=== PATIENT | male | born 1985 | race Caucasian/White ===

== ENCOUNTER → 2020-01-26 | Outpatient (CLI) | payer OTHER | END | disposition home or self-care (01) | LOC: LABWHC1 07:48 | PROVIDERS: ATTEND Internal Medicine | DX: Z20.828 Contact with and (suspected) exposure to other viral communicable diseases (principal) | CPT/HCPCS: 87635 ==

== ENCOUNTER → 2020-07-12 | Outpatient (CLI) | payer OTHER | END | disposition home or self-care (01) | LOC: LABWHC1 13:30 | PROVIDERS: ATTEND Internal Medicine | DX: Z20.828 Contact with and (suspected) exposure to other viral communicable diseases (principal) | CPT/HCPCS: U0003; C9803 ==

== ENCOUNTER → 2020-12-12 | Outpatient (CLI) | payer OTHER ==
--- NOTE | 2020-12-12 20:59 | XR ---
EXAMINATION TYPE: XR abdomen 2V DATE OF EXAM: 12/12/2020 CLINICAL DATA: 35-year-old male K5 9.00, constipation., [facility] COMPARISON: None FINDINGS: No free intraperitoneal air is seen, though, the superiormost right hemidiaphragm is cut off from the image. No dilated small bowel or air-fluid levels. Moderate stool within the right side of the colon. Overal l, there is mild stool burden. Phlebolith in the right side of the pelvis. IMPRESSION: No evidence for bowel obstruction. Moderate stool in the right side of the abdomen. Overall, mild sto ol burden.
== END | disposition home or self-care (01) ==
LOC: RADXRMAIN 11:06
PROVIDERS: ATTEND Internal Medicine
DX: K59.00 Constipation, unspecified (principal)
CPT/HCPCS: 74019

== ENCOUNTER → 2023-04-15 | Outpatient (CLI) | payer OTHER ==
--- NOTE | 2023-04-15 13:54 | XR ---
3 views left foot. DATE: 04/15/2023. COMPARISON: None available. Clinical history: Left foot pain. IMPRESSION: There is no acute fracture, subluxation or dislocation. The joint spaces are preserved. There is no significant soft tissue swelling.
== END | disposition home or self-care (01) ==
LOC: RADXRMAIN 13:06
PROVIDERS: ATTEND Internal Medicine
DX: M79.672 Pain in left foot (principal)

== ENCOUNTER → 2024-02-04 | Outpatient (CLI) | payer BC ==
--- NOTE | 2024-02-04 11:16 | XR ---
EXAMINATION TYPE: XR KUB DATE OF EXAM: 02/04/2024 10:14 AM CLINICAL INDICATION:Male, 38 years old with history of K59.00 CONSTIPATION; COMPARISON: None. TECHNIQUE: One radiographic view of the abdomen was obtained. FINDINGS: The bowel gas pattern is nonspecific without dilated loops of small or large bowel. There i s no evidence for organomegaly or pneumoperitoneum. The osseous structures are intact. No abnormal calcifications are present. Fecal material and gas are demonstrated throughout the colon and rectum. IMPRESSION: Mild to moderate amount stool in the right colon. Nonspecific bowel gas pattern without radiographic evidence for acute process.
== END | disposition home or self-care (01) ==
LOC: RADXRMAIN 09:49
PROVIDERS: ATTEND Internal Medicine
DX: K59.00 Constipation, unspecified (principal)
CPT/HCPCS: 74018